=== PATIENT | female | born 1955 | race Caucasian/White ===

== ENCOUNTER → 2016-08-29 | Outpatient (CLI) | payer OTHER ==
[~2016-08-29] MED LIST: AMBEREN PO; FISHOIL PO; LIVALO2 MG PO; LORTAB 5 MG/5001 TA1 PO; NORCO 5-325 TA1 EACH PO; VITAMIN E400 UNIT PO; VITAMINC500 PO; VYTORIN 10-401 EACH PO
== END ==
LOC: MRI 06:59
DX: M19.011 Primary osteoarthritis, right shoulder (principal)

== ENCOUNTER → 2018-01-26 | Outpatient (CLI) | payer OTHER ==
[~2018-01-26] MED LIST changes: +FISH OIL 1,001000 M2 PO; +NAPROSYN500 MG PO; +POTASSIUM CHLORIDE PO; +SIMVASTATIN20 MG PO; +VITAMIN D1000 UNI1 PO
== END ==
LOC: RAD 15:36
DX: Z12.31 Encounter for screening mammogram for malignant neoplasm of breast (principal)

== ENCOUNTER 2018-05-15 09:36 | Emergency (ER) | payer OTHER ==
[~2018-05-15] VITALS: Ht 167.6 cm; Wt 72.6 kg
[2018-05-15 10:40] LABS: ABSOLUTE NEUTROPHILS 5.8 thou/uL (1.4-8.2); BASOPHILS 0.5 % (0.0-2.0); EOSINOPHILS 19.3 % (0.0-3.0); HEMATOCRIT 48.7 % (37.0-47.0); HEMOGLOBIN 16.8 gm/dL (12.0-15.0); MCH 32.7 pg (26.0-34.0); MCHC 34.6 g/dL (28.0-37.0); MCV 94.7 fL (80.0-100.0); MONOCYTES 5.6 % (1.0-8.0); PLATELET COUNT 226 thou/uL (150-400); POLYS 57.6 % (36.0-66.0); RBC 5.14 mil/uL (4.20-5.00); RDW 13.3 % (10.5-14.5); WBC 10.1 thou/uL (4.0-11.0)
[2018-05-15 10:42] LABS: ANION GAP 0 mmol/L (7-16); BUN 14 mg/dL (7-18); CALCIUM 9.3 mg/dL (8.5-10.1); CHLORIDE 104 mmol/L (98-107); CO2 31 mmol/L (21-32); CREATININE 0.7 mg/dL (0.6-1.0); GLUCOSE 96 mg/dL (74-106); POTASSIUM 3.9 mmol/L (3.5-5.1); SODIUM 135 mmol/L (136-145)
[2018-05-15 10:51] LABS: ALBUMIN 4.2 g/dL (3.4-5.0); LIPASE 84 U/L (73-393); SGOT 27 U/L (15-37); SGPT 30 U/L (30-65); TOTAL BILIRUBIN 0.5 mg/dL (<0.1-1.0); TOTAL PROTEIN 7.4 g/dL (6.4-8.2); TROPONIN-I <0.06 ng/mL (<0.06)
[2018-05-15 10:51] LABS: URINE BILIRUBIN NEGATIVE (Negative); URINE BLOOD NEGATIVE (Negative); URINE CLARITY CLEAR; URINE COLOR YELLOW; URINE GLUCOSE-RANDOM* NEGATIVE (Negative); URINE KETONES NEGATIVE (Negative); URINE LEUKOCYTES-REFLEX NEGATIVE (Negative); URINE NITRITE-REFLEX NEGATIVE (Negative); URINE PROTEIN (DIPSTICK) NEGATIVE (Negative); URINE UROBILINOGEN 0.2 E.U./dl (0.2-1.0)
[2018-05-15 12:57] VITALS: BP 130/90
--- NOTE | 2018-05-17 08:24 | EKG ---
[address] [address] ELECTROCARDIOGRAM REPORT Name: TING PRESCOTTDELFINA Zuniga Room #: [facility]#: [id number] Admission: 05/15/18 Attend Phys: Discharge: 05/15/18 Date of : 51 Report #: [id number] THIS REPORT FOR: //name// [facility] ED Test Date: 2018-05-15 Test Time: 10:33:07 Pat Name: FREDERICK PRESCOTT Department: Room: Gender: F Cardiac Nurse Specialist: [facility] : 1955 Requested By: Justino Christianson Order Number: [id number] MD: Ata Leal Measurements Intervals [place] Rate: 79 P: 62 [place]: 129 QRS: 46 QRSD: 91 T: 46 QT: 406 QTc: 466 Interpretive Statements Sinus rhythm Normal tracing Compared to ECG 08/23/2010 13:18:10 No significant changes Electronically Signed On 05-17-2018 8:24:32 [employer] by Ata Leal [email or web address] <ELECTRONICALLY SIGNED> By: Ata Leal MD, [facility] 05/17/18 0824 1033 1033 Ata Leal MD, FACC /EPI
== END 2018-05-15 13:00 | disposition home or self-care (01) ==
LOC: ER 09:36
PROVIDERS: Emergency Medicine
DX: J98.11 Atelectasis (principal); I10 Essential (primary) hypertension; Z90.49 Acquired absence of other specified parts of digestive tract; F17.200 Nicotine dependence, unspecified, uncomplicated; Z88.0 Allergy status to penicillin

== ENCOUNTER → 2019-10-24 | Outpatient (CLI) | payer OTHER ==
[~2019-10-24] MED LIST changes: +LEXAPRO 10 MG T10 M2 PO; +MELATONIN5 MG PO; +NAPROXEN SODIU500 MG PO; -SIMVASTATIN20 MG PO; +ZOCOR20 MG PO
== END ==
LOC: RAD 08:57
PROVIDERS: ATTEND Family Medicine
DX: Z12.31 Encounter for screening mammogram for malignant neoplasm of breast (principal)

== ENCOUNTER → 2019-10-27 | Outpatient (CLI) | payer OTHER | LOC: BC 09:00 | PROVIDERS: ATTEND Family Medicine | DX: R92.1 Mammographic calcification found on diagnostic imaging of breast (principal) ==

== ENCOUNTER → 2019-10-28 | Outpatient (CLI) | payer OTHER ==
[~2019-10-28] VITALS: Ht 167.6 cm; Wt 71.7 kg
--- NOTE | 2019-10-28 15:00 | P ---
[facility] [place] [address] PROCEDURE REPORT Name: FREDERICK PRESCOTT Room #: REG [facility]#: [id number] Admission: 10/28/19 Attend Phys: Kalpesh Coffman Discharge: Date of : 51 Report #: [id number] THIS REPORT FOR: cc: Manan Contreras,Kalpesh Ramirez MD ~ CC: Kalpesh Contreras DO DATE OF SERVICE: 10/28/2019 PROCEDURE PERFORMED: Colonoscopy with biopsies. HISTORY OF PRESENT ILLNESS: The patient is a 64-year-old female with a history of colon polyps, last colonoscopy in 2012 was noted to have diverticulosis at that time. At that time, the patient was having diarrhea and biopsies were suggestive of collagenous colitis. At this time, she denies any significant diarrhea. No family history of colon cancer. DESCRIPTION OF PROCEDURE: The risks and benefits of the procedure were explained to the patient, those risks including but not limited to bleeding, perforation and the risk of sedation. She understood these risks and gave informed consent. Sedation was given using propofol per anesthesia. Next, a digital rectal exam was initially performed, which was normal. Next, using a standard Olympus colonoscope, the scope was placed in the patient's anus and advanced under direct vision to the cecum. The overall prep was good. The cecum and ileocecal valve were normal in appearance. Ascending colon was normal. Random biopsies were obtained to rule out the possibility of collagenous colitis. The transverse and descending colon were normal. Multiple diverticula were again noted in the sigmoid colon, no evidence of inflammation. Also noted, there were two 3-4 mm sessile polyps in the sigmoid colon, both removed with cold forceps. The rectal mucosa was normal. On retroflexion, no abnormalities were noted other than small internal hemorrhoid. The scope was then withdrawn and the procedure terminated. The patient tolerated the procedure well. IMPRESSION: 1. Sigmoid diverticulosis. 2. Two small colonic polyps. 3. Small internal hemorrhoids. 4. Otherwise, normal colonoscopy. RECOMMENDATIONS: 1. Await biopsy results. 2. If polyps are hyperplastic, repeat in 10 years; if adenomatous polyps, [address] [address] PROCEDURE REPORT Name: KENYONFREDERICK Room #: REG [place]#: [id number] Admission: 10/28/19 Attend Phys: Kalpesh Coffman Discharge: Date of : 51 Report #: [id number] repeat in 5 years. Thank you for allowing me to participate in her care. <ELECTRONICALLY SIGNED> By: Kalpesh Vick MD 10/28/19 1500 0954 1051 Kalpesh Vick MD /nt
--- NOTE | 2019-10-28 15:00 | P ---
[facility] [place] [address] PROCEDURE REPORT Name: FREDERICK PRESCOTT Room #: REG [facility]#: [id number] Admission: 10/28/19 Attend Phys: Kalpesh Coffman Discharge: Date of : 51 Report #: [id number] THIS REPORT FOR: cc: Manan Contreras,Kalpesh Ramirez MD ~ CC: Kalpesh Contreras DO DATE OF SERVICE: 10/28/2019 PROCEDURE PERFORMED: Upper endoscopy with biopsies. HISTORY OF PRESENT ILLNESS: The patient is a 64-year-old female with a history of intermittent heartburn. She denies any dysphagia, not taking any antacids on a regular basis. She does take naproxen daily. Plan is for EGD and colonoscopy today. DESCRIPTION OF PROCEDURE: The risks and benefits of the procedure were explained to the patient, those risks including but not limited to bleeding, perforation and the risk of sedation. She understood these risks and gave informed consent. Sedation was given using propofol per Anesthesia. Next, using a standard Olympus upper endoscope, the scope was placed in the patient's mouth and advanced under direct vision through the esophagus, stomach and into the second portion of the duodenum. The larynx was normal in appearance. In the proximal esophagus, 2 inlet patches were noted. The mid esophagus was normal. In the distal esophagus, a possible short segment of Jameson's was noted. Biopsies were obtained. Grade B erosive esophagitis was also noted. Overall, the gastric mucosa was normal in the fundus and body; however, in the antrum, there was gastritis with a single clean white based 5 mm ulcer. No evidence of bleeding. Biopsies were obtained to rule out H. pylori. The pylorus was normal and patent. The duodenal bulb, first and second portion were normal. Biopsies were obtained to rule out the possibility of celiac sprue. The scope was then withdrawn and the procedure terminated. The patient tolerated the procedure well. IMPRESSION: 1. Grade B erosive esophagitis. 2. 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 3. Gastric ulcer with gastritis. 4. Otherwise, normal upper endoscopy. RECOMMENDATIONS: 1. Await biopsy results. 2. Would recommend long-term daily PPI therapy. [address] [address] PROCEDURE REPORT Name: FREDERICK PRESCOTT Room #: REG [facility]#: [id number] Admission: 10/28/19 Attend Phys: Kalpesh Coffman Discharge: Date of : 51 Report #: [id number] 3. We will proceed with colonoscopy next today. Thank you for allowing me to participate in her care. <ELECTRONICALLY SIGNED> By: Kalpesh Vick MD 10/28/19 1500 0951 0959 Kalpesh Vick MD /nt
--- NOTE | 2019-10-31 18:06 | PATH ---
[facility] [place] [address] PATHOLOGY RPT PROCEDURE Name: FREDERICK PRESCOTT Nadia Room #: REG SUMA[facility] BenjaminAnaTwan.#: [id number] Admission: 10/28/19 Date of : 51 Discharge: Report #: [id number] Path Case #: [id number] [facility] Accession Number: [id number] . 01 Material submitted: . PART A: duodenum - DUODENAL BX PART B: stomach - GASTRITIS BX PART C: esophagus - DISTAL ESOPHAGUS BX. Modifiers: distal PART D: colon - RANDOM COLON BX PART E: sigmoid colon - SIGMOID COLON POLYP X3 . 01 Clinical history: . GERD, history of polyps Gastritis, gastric ulcer, erosive esophagitis, colon polyps . 02 Diagnosis: A. Small bowel mucosa, duodenal R/O sprue, endoscopic biopsy: - No diagnostic abnormalities present. - Negative for villous blunting or increase in intraepithelial lymphocytes. . B. Gastric mucosa, gastritis R/O H. pylori, endoscopic biopsy: - Mild reactive gastropathy. - Negative for intestinal metaplasia or atrophy. - Negative for Helicobacter pylori (properly controlled immunohistochemical stain performed). . C. Gastroesophageal mucosa, distal esophagus R/O Jameson's, endoscopic biopsy: - Gastric cardia-type mucosa with moderate chronic inflammation. - Negative for intestinal metaplasia or dysplasia. - Squamous mucosa with mild esophagitis. . D. Large intestine, random colon history of collagenous colitis, endoscopic biopsy: - Focal denuded surface epithelium along with scattered crypts showing lymphocytic infiltration (please see comment). - Reactive changes. - Negative for dysplasia or malignancy. . E. Polyp x3, sigmoid colon polyp, endoscopic biopsy: - Tubular adenoma identified in multiple fragments. - Negative for high-grade dysplasia. (IUV:armando; 10/31/2019) S 10/31/2019 1421 Local . 02 Comment: [address] [address] PATHOLOGY RPT PROCEDURE Name: FREDERICK PRESCOTT Room #: REG [facility]#: [id number] Admission: 10/28/19 Date of : 51 Discharge: Report #: [id number] Path Case #: [id number] The provided history of collagenous colitis is noted. The submitted "random colon" biopsy tissue shows scattered foci with denuded surface epithelium, and mild increase in intraepithelial lymphocytes within scattered crypts along with eosinophils within the crypts. These findings may be suggestive of residual collagenous colitis. The subepithelial collagen layer is not significantly thickened within any of the fragments sampled. Active cryptitis is not a feature within the biopsy fragments as well. Findings to suggest acute or chronic diverticulitis, or ischemic colitis are not identified. Please note the differential diagnosis includes drug/medication induced colitis. Clinical correlation is suggested. (IUV:armando; 10/31/2019) . 02 Electronically signed: . Jennifer Jarquin MD, Pathologist NPI- [id number] . 01 Gross description: . A. The specimen is received in formalin labeled "Sandra, Olene, duodenal BX rule out sprue" and consists of multiple fragments of cordero tissue measuring 1.1 x 0.2 x 0.2 cm in aggregate which are entirely submitted in A1. . B. The specimen is received in formalin labeled "Sandra, Olene, gastritis BX rule out H. pylori" and consists of 2 fragments of cordero tissue measuring 0.5 x 0.3 x 0.2 cm in aggregate which are entirely submitted in B1. . C. The specimen is received in formalin labeled "Sandra, Olene, distal esophagus BX rule out Jameson's" and consists of multiple fragments of pink-cordero tissue measuring 0.6 x 0.2 x 0.2 cm in aggregate which are entirely submitted in C1. . D. The specimen is received in formalin labeled "Sandra, Olene, random colon BX history of collagenous colitis" and consists of multiple fragments of cordero tissue measuring 0.8 x 0.3 x 0.2 cm in aggregate which are entirely submitted in D1. . E. The specimen is received in formalin labeled "Sandra, Olene, sigmoid colon polyp x3" and consists of multiple fragments of cordero tissue measuring 1.2 x 0.3 x 0.2 cm in aggregate which are entirely submitted in E1. (BRAYDEN; 10/28/2019) JFQ/EFE 10/28/2019 1850 Local . 02 Pathologist provided ICD-10: K31.9, K20.9, D12.5, K21.0, Z86.010 . 02 [facility] . [address] [address] PATHOLOGY RPT PROCEDURE Name: FREDERICK PRESCOTT Room #: REG SUMAYA Minor.#: [id number] Admission: 10/28/19 Date of : 51 Discharge: Report #: [id number] Path Case #: [id number] Specimen Comment: A courtesy copy of this report has been sent to [phone] Specimen Comment: [phone] Specimen Comment: Report sent to / DR SANCHEZ Performed at: [address] [facility] [address], [place] [id number] MD Catarino Garcia MD Phone: [phone] Performed at: [address] [facility] [address] [id number] MD Jennifer Jarquin MD Phone: [phone]
== END | disposition home or self-care (01) ==
LOC: GI 07:36
PROVIDERS: ATTEND Specialist
DX: Z12.11 Encounter for screening for malignant neoplasm of colon (principal); R12 Heartburn; K64.8 Other hemorrhoids; K57.30 Diverticulosis of large intestine without perforation or abscess without bleeding; K63.89 Other specified diseases of intestine; K31.89 Other diseases of stomach and duodenum; K21.0 Gastro-esophageal reflux disease with esophagitis; D12.5 Benign neoplasm of sigmoid colon; K29.50 Unspecified chronic gastritis without bleeding; Z88.0 Allergy status to penicillin; Z79.899 Other long term (current) drug therapy; Z98.890 Other specified postprocedural states
CPT/HCPCS: 62110; 62900

== ENCOUNTER → 2019-11-03 | Outpatient (CLI) | payer OTHER ==
[~2019-11-03] MED LIST changes: +LORCET 5-325 M1 EACH PO; +OMEPRAZOLE 20 M20 M1 PO
--- NOTE | 2019-11-04 17:08 | PATH ---
[facility] [address] [place] [address] PATHOLOGY RPT PROCEDURE Name: KENYONML Room #: REG [facility] Mily.#: [id number] Admission: 11/03/19 Date of : 51 Discharge: Report #: [id number] Path Case #: [id number] [facility] Accession Number: [id number] . 01 Material submitted: . breast - LEFT BREAST STEREOTACTIC BIOPSY LATERAL. Modifiers: left, lateral . 01 Clinical history: . Left breast calcifications . 02 Diagnosis: Left breast lateral calcifications, stereotactic needle core biopsy: - FOCAL ATYPICAL DUCTAL HYPERPLASIA WITH CRIBRIFORMING AND FOCAL INTRADUCTAL PAPILLARY PROLIFERATIONS ASSOCIATED WITH COARSE CALCIFICATIONS. - Background breast tissue showing nonproliferative fibrocystic changes. (IUV:armando; 11/04/2019) QMS 11/04/2019 1139 Local . 02 Comment: Examination shows focal dilated ducts lined by columnar cell change, columnar cell hyperplasia, few intraductal papillary proliferations as well as "Tirso" bridging comprised of a monotonous nucleated proliferation. These foci are scattered and are associated with coarse calcifications. A single focus measures approximately 1 mm; therefore, represents atypical ductal hyperplasia. Partially sampled cribriform ductal carcinoma in situ is in the differential diagnosis. . Projector Booth Operator slides were co-reviewed by Dr. Chetna Foreman, who concurs with my diagnosis. (IUV:armando; 11/04/2019) . 02 Electronically signed: . Jennifer Jarquin MD, Pathologist NPI- [id number] . 01 Gross description: . The specimen is received in formalin, labeled "Ml Flores". No source is listed on the container. The source is listed on the requisition as, "left lateral". Received are multiple needle cores of fibrofatty tissue measuring 2.7 x 2.0 x 0.4 cm in aggregate dimensions. Also received within the containers a plastic cassette containing several cores of bright yellow fibrofatty tissue measuring 2.2 x 1.7 x 0.4 cm in aggregate dimensions. The suspect tissue is transferred to cassette A1, with the remainder of the specimen submitted in cassettes A2 and A3. The cold ischemic time is 2 minutes. The total formalin fixation time is 11 hours and [address] [address] PATHOLOGY RPT PROCEDURE Name: KENYONML Room #: REG [facility]#: [id number] Admission: 11/03/19 Date of : 51 Discharge: Report #: [id number] Path Case #: [id number] (CAA; 11/03/2019) QAC/QAC 11/03/2019 1738 Local . 02 Pathologist provided ICD-10: N62, N60.12 . 02 CPT . [id number] Specimen Comment: A courtesy copy of this report has been sent to [phone] Specimen Comment: [phone] Specimen Comment: Report sent to / DR SANCHEZ Performed at: [address] [facility], [place] [id number] MD Catarino Garcia MD Phone: [phone] Performed at: [address] [id number] MD Jennifer Jarquin MD Phone: [phone]
== END | disposition home or self-care (01) ==
LOC: BC 08:23
PROVIDERS: ATTEND Radiology Diagnostic Radiology
DX: N60.12 Diffuse cystic mastopathy of left breast (principal); N62 Hypertrophy of breast; R92.1 Mammographic calcification found on diagnostic imaging of breast

== ENCOUNTER → 2019-11-17 | Outpatient (CLI) | payer OTHER | LOC: LAB 10:50 | PROVIDERS: ATTEND Student in an Organized Health Care Education/Training Program | DX: Z01.812 Encounter for preprocedural laboratory examination (principal); Z11.59 Encounter for screening for other viral diseases ==

== ENCOUNTER 2019-11-18 12:24 | Day surgery (SDC) | payer OTHER ==
[~2019-11-18] VITALS: Ht 170.2 cm; Wt 71.7 kg
--- NOTE | ~2019-11-18 | O ---
[facility] [place] [address] OPERATIVE REPORT Name: FREDERICK PRESCOTT Room #: DEP [facility].#: [id number] Admission: 11/18/19 Attend Phys: Ian Grubbs MD Discharge: 11/18/19 Date of : 51 Report #: [id number] THIS REPORT FOR: cc: Manan Contreras,Ian Fernando MD ~ CC: Manan Alberto DATE OF SERVICE: 11/18/2019 PREOPERATIVE DIAGNOSES: Left breast mass with focus of atypical ductal hyperplasia and focus of intraductal papillary proliferation, post stereotactic breast biopsy hematoma. POSTOPERATIVE DIAGNOSES: Left breast mass with focus of atypical ductal hyperplasia and focus of intraductal papillary proliferation, post stereotactic breast biopsy hematoma. PROCEDURES PERFORMED: Left lumpectomy, removing the entire biopsy site including the hematoma. SURGEON: Ian Grubbs MD COMPLICATIONS: None. ESTIMATED BLOOD LOSS: 5 mL. PROCEDURE NOTE: With the patient under general anesthesia, the left breast was prepped and draped in sterile fashion. Ultrasound was used to macrina the site of the hematoma and where the presence of the clip. Breast was then prepped and draped in sterile fashion. A small ellipse of skin was removed overlying the underneath breast tissue. The patient had a stereotactic breast biopsy with the craniocaudad view and anterior approach and the whole entire tract had a large hematoma. The entire hematoma with surrounding was removed. Dissection was carried out after incising through the skin. The skin was then lifted off of the mass. At the superior aspect of the mass, a biopsy cavity was found and this wall was further removed. Dissection was carried out around the breast tissue medially and then laterally and then lifted off the chest wall without difficulty. The mammography people were not there today. I did go ahead and do a soft tissue x-ray and I could see the clip within the specimen. The picture almost looks like a specimen mammogram. Specimen was also oriented with a short stitch superiorly, long stitch laterally at 9 o'clock and superiorly at 12 o'clock. The small piece of the skin lying over it is anterior. Hemostasis obtained. Cautery was used. Two 4-0 PDS suture was used for hemostasis also. [address] [address] OPERATIVE REPORT Name: FREDERICK PRESCOTT Nadia Room #: DEP [facility].#: [id number] Admission: 11/18/19 Attend Phys: Ian Grubbs MD Discharge: 11/18/19 Date of : 51 Report #: [id number] The subcutaneous tissue was closed with 4-0 PDS. Skin was closed with 5-0 PDS running in subcuticular fashion. Dermabond was applied. Fluffy 4 x 4s, ABD tape was applied. The patient was taken to recovery room having tolerated the procedure well. By: 1754 1812 Ian Grubbs MD /romaine
[~2019-11-18 12:24] MED LIST changes: -LORCET 5-325 M1 EACH PO
[2019-11-18 13:11] VITALS: BP 169/91
[2019-11-18 13:11] LABS: HEMATOCRIT 45.6 % (37.0-47.0); HEMOGLOBIN 15.3 gm/dL (12.0-15.0)
[2019-11-18] MEDS ORDERED: LORCET 5-325 M1 EACH PO (16:10)
--- NOTE | 2019-11-18 16:15 | H ---
[facility] [place] [address] HISTORY AND PHYSICAL Name: FREDERICK PRESCOTT Room #: 150-1 [facility]..#: [id number] Admission: 11/18/19 Attend Phys: Ian Grubbs MD Discharge: Date of : 51 Report #: [id number] THIS REPORT FOR: cc: Rosario Contreras James A. DO Chu, Peter Y. MD ~ CC: ROSARIO Warner DATE OF SERVICE: 11/18/2019 PREOPERATIVE DIAGNOSIS: Focus of atypical ductal hyperplasia on recent stereotactic breast biopsy of left breast. HISTORY OF PRESENT ILLNESS: The patient is a 64-year-old who went in for a screening mammogram on 10/23. Her prior mammogram was 01/2016. The patient was found to have a microcalcification in the outer aspect of the left breast, had a branching appearance. The patient went back on 10/26 for diagnostic view, which confirmed the microcalcification and the patient underwent stereotactic breast biopsy on 11/02. Path report showed a focus of atypical ductal hyperplasia and also focus of intraductal papillary proliferation. The patient does have family history of breast cancer. She has 2 sisters that had breast cancer, both were in their 40s. Maternal grandmother had breast cancer. No family history of ovarian cancer. The patient has not had any prior breast biopsy. No mass is detected, but she does not do self exam very well. No pains in her breast. No skin changes. No discharge. The patient is recommended to have a lumpectomy performed of this area. Unfortunately, she does have a pretty large sized hematoma after stereotactic breast biopsy. The patient's clip is identified inside the hematoma along the 9 o'clock position. This was seen on an ultrasound that I performed. The patient is here for procedure. PAST MEDICAL HISTORY: The patient does have a history of diverticulosis, gastric ulcer, anxiety disorder. Denies heart disease, denies high blood pressure, denies diabetes, denies lung disease, denies liver disease, denies kidney disease, denies bleeding history. Denies history of blood clot. PAST SURGICAL HISTORY: Laparoscopic gallbladder surgery performed by myself. She had a total shoulder replacement by Dr. Henry. She has had D and Cs in the past. ALLERGIES: THE PATIENT IS ALLERGIC TO PENICILLIN. She had 2 episodes with swelling. The patient has a history of palpitations and anxiety also. FAMILY HISTORY: Patient's father had a heart attack at age 64. Mother had a pacemaker. Maternal grandfather of stroke. [address] [address] HISTORY AND PHYSICAL Name: FREDERICK PRESCOTT Room #: 150-1 [facility] M..#: [id number] Admission: 11/18/19 Attend Phys: Ian Grubbs MD Discharge: Date of : 51 Report #: [id number] SOCIAL HISTORY: The patient works at [email or web address] She does smoke and does drink also. REVIEW OF SYSTEMS: No chest pain, shortness of breath or palpitation. PHYSICAL EXAMINATION: GENERAL: The patient is alert and oriented. HEENT: Pupils react to light. Extraocular muscles intact. Oropharynx is clear. NECK: Soft and supple, no masses. LUNGS: Clear to auscultation. HEART: Regular rate and rhythm. No murmur or gallop. ABDOMEN: Soft, nondistended, nontender. BREAST: Does show a sizable hematoma lateral aspect of the breast. The patient had a stereotactic breast biopsy from craniocaudad direction. EXTREMITIES: No cyanosis, clubbing or edema. IMPRESSION: The patient with an abnormal mammogram showing a branching microcalcification of left breast. Biopsy showed that this contains a focus of atypical ductal hyperplasia and also intraductal papillary perforation. The patient is recommended to have a lumpectomy to remove this area. She is brought in for the procedure. The patient understands the procedure, risk of bleeding, and infection. The reason for the biopsy is that she does have a fairly high risk for breast cancer and also to make sure that pathology does not get upgraded to a higher level such as DCIS. <ELECTRONICALLY SIGNED> By: Ian Grubbs MD 11/18/19 1615 0925 0954 Ian Grubbs MD /nt
[2019-11-18 16:23] VITALS: BP 169/91
--- NOTE | 2019-11-21 08:01 | EKG ---
[facility] [place] [address] ELECTROCARDIOGRAM REPORT Name: FREDERICK PRESCOTT Room #: DEP [facility]..#: [id number] Admission: 11/18/19 Attend Phys: Ian Grubbs MD Discharge: 11/18/19 Date of : 51 Report #: [id number] THIS REPORT FOR: cc: Manan Contreras James A. DO Lundgren, Craig H. MD [facility] THIS REPORT FOR: //name// [facility] Test Date: 2019-11-18 Test Time: 12:47:45 Pat Name: FREDERICK PRESCOTT Department: Room: 150 1 Gender: F Distributor Advertising Material: LORRIE : 1955 Requested By: Ian Grubbs Order Number: [id number] MD: Ata Leal Measurements Intervals [place] Rate: 67 P: 69 [place]: 127 QRS: 57 QRSD: 90 T: 45 QT: 444 QTc: 469 Interpretive Statements Sinus rhythm Normal tracing Compared to ECG 05/15/2018 10:33:07 No significant changes Electronically Signed On 11-21-2019 8:01:06 CDT by Ata Leal [email or web address] <ELECTRONICALLY SIGNED> By: Ata Leal MD, [facility] 11/21/19 0801 1247 1247 Ata Leal MD, [facility] /EPI
--- NOTE | 2019-11-25 16:06 | PATH ---
[facility] [place] [address] PATHOLOGY RPT PROCEDURE Name: ML PRESCOTT Nadia Room #: DEP [facility].#: [id number] Admission: 11/18/19 Date of : 51 Discharge: 11/18/19 Report #: [id number] Path Case #: [id number] [facility] Accession Number: [id number] . 01 Material submitted: . breast - LEFT BREAST LUMPECTOMY. Modifiers: left . 01 Clinical history: . Left atypical ductal hyperplasia. . 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 - DUCTAL CARCINOMA IN SITU MEASURES AT LEAST 9 MM IN GREATEST DIMENSION. - MARGINS OF RESECTION FREE OF MALIGNANCY; CLOSEST MEDIAL MARGIN IS LESS THAN 1 MM AWAY. . (IUV:mml; 11/22/2019) . . Surgical Pathology Cancer Case Summary . Protocol posting date: May 2019 . DCIS OF THE BREAST: . Specimen Identification . Procedure ___ Lumpectomy . Specimen Laterality ___ Left . Size (Extent) of DCIS Estimated size (extent) of DCIS (greatest dimension using gross and microscopic evaluation): at least (millimeters) 9 mm Number of blocks with DCIS: 6 Number of blocks examined: 28 . Histologic Type ___ Ductal carcinoma in situ . Architectural Patterns ___ Cribriform . [facility] [address] [place] [address] PATHOLOGY RPT PROCEDURE Name: TING PRESCOTTDELFINA Zuniga Room #: DEP [facility]#: [id number] Admission: 11/18/19 Date of : 51 Discharge: 11/18/19 Report #: [id number] Path Case #: [id number] Nuclear Grade) ___ Grade II (intermediate) . Necrosis ___ Not identified . Margins ___ Uninvolved by DCIS Distance from closest margin (millimeters): less than 1 mm Specify closest margin: medial Specify additional margins: ___ Anterior: 20 mm ___ Posterior: 18 mm ___ Lateral: 15 mm . Regional Lymph Nodes ___ No lymph nodes submitted or found . Pathologic Stage Classification (pTNM, AJCC 8th Edition) . Primary Tumor (pT) ___ pTis (DCIS): Ductal carcinoma in situ . Category (pN) ___ pNX: Regional lymph nodes cannot be assessed (eg: not removed for pathological study or previously removed) . Distant Metastasis (pM) ___ pMx: None known . Ancillary Studies ___ Ordered to be performed on Block A12; please refer to an addendum report to follow for details. . Microcalcifications ___ Present in DCIS as well as benign breast tissue. [facility] 11/23/2019 1247 Local . 02 Comment: Dr. Chetna Foreman has seen factory representative slides of this case and concurs with my diagnosis. . The findings of this case are conveyed to Dr. Ina Grubbs on the evening of 11/22/2019. . (IUV:mml; 11/22/2019) . [address] [address] PATHOLOGY RPT PROCEDURE Name: ML PRESCOTT Room #: DEP [facility]#: [id number] Admission: 11/18/19 Date of : 51 Discharge: 11/18/19 Report #: [id number] Path Case #: [id number] Addendum: . Special studies report received from [facility], [address] [place] [address], [address], [place], [address], on case [id number], labeled with their number [id number], dated 11/25/2019. . Breast/Prognostic Marker Analysis . Specimen Site: Lt Breast, DCIS (Lumpectomy) Specimen ID #: [id number] . ER (Estrogen Receptor) Present/Positive Percent: 95.00% Analysis: Manual Comments: Staining intensity: Moderate to strong . NV (Progesterone Receptor) Present/Positive Percent: 90.00% Analysis: Manual Comments: Staining intensity: Weak to moderate . Time to Fixation (Cold Ischemic Time): Not Provided Duration of Fixation: Not Provided Type of Fixative: 10% Neutral Buffered Formalin . Comments: ER/PgR testing at [facility]. is performed in compliance with the ASCO/CAP Clinical Practice Guidelines. If the result for ER is less than 1% it is reported as Negative; if the ER result is 1-10% it is reported as Low Positive; if the ER result is greater than 10% it is reported as Positive. If the result for PgR is less than 1% it is reported as Negative; if the PgR result is equal to or greater than 1%, it is reported as Positive. . REFERENCE: Pia MCKINNON, Sai UREÑA, Donna M, et al. Estrogen and progesterone receptor testing in breast cancer. ASCO/CAP guideline update. Arch Pathol Lab Med. 2020; 144:545-563. . Whole slide image capture is performed using [employer] ([employer]) platform. Image analysis, if ordered, is performed using [employer] software. . at [facility]. Deborah Grover M.D. Pathologist . [address] [address] PATHOLOGY RPT PROCEDURE Name: ML PRESCOTT Room #: DEP [facility]#: [id number] Admission: 11/18/19 Date of : 51 Discharge: 11/18/19 Report #: [id number] Path Case #: [id number] . Methodology A rabbit monoclonal antibody (clone SP1) that recognized the Estrogen Receptor is used to perform immunohistochemistry on routinely fixed (formalin) paraffin embedded tissue on the [place] [employer]. The specimen is processed using a secondary antibody-HRP conjugate detection system. The percentage of stained tumor nuclei is determined either manually or by image analysis. This test is intended for in vitro diagnostic use. This test is used for clinical purposes. . A rabbit monoclonal antibody (clone 1E2) that recognized the Progesterone Receptor is used to perform immunohistochemistry on routinely fixed (formalin) paraffin embedded tissue on the [employer] [place] [employer]. The specimen is processed using a secondary antibody-HRP conjugate detection system. The percentage of stained tumor nuclei is determined either manually or by image analysis. This test is intended for in vitro diagnostic use. This test is used for clinical purposes. . Intended Use: This antibody is intended for in vitro diagnostic (IVD) use. Estrogen Receptor (ER) (SP1) is a rabbit monoclonal antibody (IgG) that is intended for the qualitative detection of estrogen receptor (ER) antigen in sections of formalin-fixed, paraffin-embedded tissue. ER is a rabbit monoclonal antibody that recognizes human estrogen receptor alpha. . This antibody is intended for in vitro diagnostic (IVD) use. Progesterone Receptor (NV) (1E2) is a rabbit monoclonal antibody (IgG) that is intended for the qualitative detection of progesterone receptor (NV) antigen in sections of formalin fixed, paraffin embedded tissue. NV is a rabbit monoclonal antibody that recognizes the A and B forms of the human progesterone receptor. . Disclaimer: This Test was performed by [employer] at [address], [address]. . [facility] is a business unit of [employer]. a wholly-owned subsidiary of [employer]. . This assay has not been validated on decalcified tissues. Results should be interpreted with caution if this specimen was decalcified given the likelihood of false negativity on decalcified specimens. . Any image(s) that accompany this report is/are a factory representative image(s) only and should not be used to render a diagnosis. . This interpretation is contingent on the specimen and the clinical [facility] [place] [address] PATHOLOGY RPT PROCEDURE Name: ML PRESCOTT Nadia Room #: DEP [facility]..#: [id number] Admission: 11/18/19 Date of : 51 Discharge: 11/18/19 Report #: [id number] Path Case #: [id number] information received. . For any special tests/stains performed, known positive cells or tissues are tested with each marker and examined to ensure positivity. Positive and negative internal controls, if present, react appropriately. . This analysis is an adjunct to the evaluation of the referring physician and does not represent a final diagnosis. . The immunohistochemistry tests performed at [employer] were validated on tissue fixed in 10% neutral buffered formalin. The performance characteristics of the tests performed on tissue processed in other fixatives is not known. . ER/NV ASCO/CAP guidelines require fixation in neutral buffered formalin for a minimum of 6 and a maximum of 72 hours. Fixation times less than 6 hours may not adequately preserve cell proteins. Fixation times longer than 72 hours may cause excess cross-linking of proteins reducing the antigen available for staining. Either scenario can cause reduced staining; hence false negative results are possible and should be considered for these situations. The time from biopsy/excision to fixation in formalin (cold ischemic time) must be less than 1 hour. Time to fixation (cold ischemic time) greater than 1 hour should be interpreted with caution. REF: Cassdiy Gibbs, et al. [place] Society of Clinical Oncology/College of [place] Pathologists Guideline Recommendations for Immunohistochemical Testing of Estrogen and Progesterone Receptors in Breast Cancer. J Clin Oncol. 2010 September 11; 28(16): 8729-7904. . A complete copy of the report is on file. . Professional and Technical services performed by [employer]. at [address], [address], [place] [address]. . (IUV:amj 11/25/2019) . . [place]/11/25/2019 Addendum Electronically Signed by Jennifer Jarquin MD, Pathologist . 02 Electronically signed: . Jennifer Jarquin MD, Pathologist NPI- [id number] . 01 Gross description: . A. Received in formalin labeled "Ml Prescott, left breast lumpectomy short stitch superior long stitch lateral" and further labeled on the requisition as "tiny piece of skin anteriorly" is an oriented lumpectomy specimen weighing 80 g and measuring 8.5 cm from superior to inferior, 5.6 [place] [address] PATHOLOGY RPT PROCEDURE Name: KENYONML Zuniga Room #: [facility]#: [id number] Admission: 11/18/19 Date of : 51 Discharge: 11/18/19 Report #: [id number] Path Case #: [id number] cm from medial to lateral, and 5.0 cm from anterior to posterior. The anterior aspect displays an attached ellipse of cordero-white skin measuring 4.5 x 0.7 x 0.3 cm. The specimen is inked as follows: Superior-red, inferior-blue, anterior-green, posterior-black, lateral-orange, medial-yellow. The specimen is serially sectioned from superior to inferior into 15 slices. A red-brown hemorrhagic biopsy site is identified within the specimen, extending through slices 1-13. The biopsy site measures 6.6 x 2.5 x 1.7 cm, and is located to the margins as follows: 0.3 cm to superior, 1.9 cm to inferior, 2.1 cm superior, 0.7 cm to inferior, 1.3 cm to lateral, and 1.2 cm to medial. A U shaped biopsy clip is present in slice 4. The tissue surrounding the biopsy site is yellow-cordero and lobulated with focal brighter areas possibly consistent with biopsy site changes. A lesion is not definitively identified. Rubber Tester sections of the specimen are submitted as follows: A1-A2 entire slice 1, superior margin, perpendicular sections A3-A5 entire slice 3 A6-A9 entire slice 5 A10-A13 entire slice 7 A14-A17 entire slice 9 A18-A21 entire slice 11 A22-A25 entire slice 13 A26-A28 entire slice 15, inferior margin, perpendicular sections The specimen is removed from the patient and placed in formalin at unspecified times on 11/18/2019 (a time of 1520 is stated on the container- it is unknown if significant for cold ischemic time). The specimen is removed from formalin at 1850 on 11/20/2019. ([facility]; 11/19/2019) [facility] 11/19/2019 1154 Local . 02 Pathologist provided ICD-10: D05.12 . 02 CPT . 094264 Specimen Comment: A courtesy copy of this report has been sent to [phone] Specimen Comment: [phone] Specimen Comment: Report sent to / Performed at: [address], [place], [place] [id number] MD Catarino Garcia MD Phone: [phone] Performed at: [address] [id number] MD Jennifer Jarquin MD Phone: [phone]
== END 2019-11-18 16:45 | disposition home or self-care (01) ==
LOC: OR 12:24 → TBA 12:25 → OR 16:45
PROVIDERS: ATTEND Surgery
DX: D05.12 Intraductal carcinoma in situ of left breast (principal); N62 Hypertrophy of breast; L76.32 Postprocedural hematoma of skin and subcutaneous tissue following other procedure; D24.2 Benign neoplasm of left breast; E78.00 Pure hypercholesterolemia, unspecified; F17.210 Nicotine dependence, cigarettes, uncomplicated; Z98.890 Other specified postprocedural states; Z79.899 Other long term (current) drug therapy; Z90.49 Acquired absence of other specified parts of digestive tract; Z96.611 Presence of right artificial shoulder joint
CPT/HCPCS: 50010; 50101; 50386; 50417; 54118; 56525; 56526; 62110; 62900; 70005

== ENCOUNTER → 2019-11-28 | Outpatient (CLI) | payer OTHER ==
[~2019-11-28] MED LIST changes: +LORCET 5-325 M1 EACH PO
[2019-11-28 09:29] LABS: CREATININE 0.7 mg/dL (0.6-1.0)
== END ==
LOC: MRI 08:29
PROVIDERS: ATTEND Internal Medicine Interventional Cardiology
DX: N64.89 Other specified disorders of breast (principal); D05.82 Other specified type of carcinoma in situ of left breast; Z85.3 Personal history of malignant neoplasm of breast

== ENCOUNTER → 2019-12-05 | Outpatient (CLI) | payer OTHER | LOC: RAD 09:47 | PROVIDERS: ATTEND Surgery | DX: R92.0 Mammographic microcalcification found on diagnostic imaging of breast (principal); D05.12 Intraductal carcinoma in situ of left breast ==

== ENCOUNTER → 2019-12-13 | Outpatient (CLI) | payer OTHER ==
[~2019-12-13] MED LIST changes: +HYDROCODON-ACE1 EAC7 PO
== END ==
LOC: LAB 12-12 15:03
PROVIDERS: ATTEND Surgery
DX: Z01.812 Encounter for preprocedural laboratory examination (principal); Z20.828 Contact with and (suspected) exposure to other viral communicable diseases

== ENCOUNTER 2019-12-16 06:33 | Day surgery (SDC) | payer OTHER ==
[~2019-12-16] VITALS: Ht 170.2 cm; Wt 69.4 kg
--- NOTE | ~2019-12-16 | O ---
[facility] [address]ai [address] [place] [address] OPERATIVE REPORT Name: FREDERICK PRESCOTT Room #: DEP [facility].#: [id number] Admission: 12/16/19 Attend Phys: Ian Grubbs MD Discharge: 12/16/19 Date of : 51 Report #: [id number] THIS REPORT FOR: cc: Manan Contreras James A. DO Chu, Peter Y. MD ~ CC: Manan Grubbs DATE OF SERVICE: 12/16/2019 PREOPERATIVE DIAGNOSIS: Recently identified DCIS of the left breast with close margin less than 1 mm medially. Also residual microcalcifications. POSTOPERATIVE DIAGNOSIS: Recently identified DCIS of the left breast with close margin less than 1 mm medially. Also residual microcalcifications. PROCEDURE PERFORMED: Redo lumpectomy with preop needle localization of microcalcification. COMPLICATIONS: None. ESTIMATED BLOOD LOSS: 5 mL. SURGEON: Ian Grubbs MD PROCEDURE NOTE: With the patient under general anesthesia, left breast was prepped and draped in sterile fashion. Local anesthetic was placed with 0.5% Marcaine. A timeout was performed. The patient did receive IV antibiotic preop. The previous lumpectomy scar was opened up, the needles along the inferior aspect of the previous lumpectomy. A small ellipse of skin was left around the needle. Dissection was then carried anteriorly. The biopsy cavity was nearly completely removed. The needle is located anterior to the cavity. Dissection carried medially, found the tip of the needle. I also excised a little bit of more breast tissue. There is some thickening of the breast tissue in this area. Dissection was carried superiorly. I did cut across the top edge of the previous lumpectomy cavity. Then, the lateral part was removed including the biopsy cavity wall with a small rim of tissue there. More of the breast tissue was removed along the medial aspect and also medial inferior aspect was also removed with more breast tissue removed from this area. Nothing palpable. Hemostasis obtained with cautery. Specimen sent to mammography. The specimen mammogram did show several areas of microcalcification. There was one calcification that looks like it is a chain in linear fashion. The specimen was given to the pathologist who came to the room for consultation. I showed him where the biopsy cavity was and where the new medial margin is located, where the inferior margin was. Irrigation was performed of the biopsy cavity. [address] [address] OPERATIVE REPORT Name: KENYONFREDERICK Room #: DEP [facility].#: [id number] Admission: 12/16/19 Attend Phys: Ian Grubbs MD Discharge: 12/16/19 Date of : 51 Report #: [id number] Subcutaneous tissue was closed with 4-0 PDS. Skin was closed with 5-0 PDS. Dermabond was applied. 4 x 4, fluff was placed and then also ABD was applied. Tape was applied. The patient tolerated the procedure well and was taken to recovery room. By: 1457 1516 Ian Grubbs MD /romaine
[~2019-12-16 06:33] MED LIST changes: -HYDROCODON-ACE1 EAC7 PO
[2019-12-16 07:58] VITALS: BP 146/97
[2019-12-16] MEDS ORDERED: HYDROCODON-ACE1 EAC7 PO (11:04)
[2019-12-16 11:19] VITALS: BP 146/97
--- NOTE | 2019-12-20 18:06 | PATH ---
[facility] [address] [place] [address] PATHOLOGY RPT PROCEDURE Name: TING PRESCOTTDELFINA Zuniga Room #: DEP [facility].#: [id number] Admission: 12/16/19 Date of : 51 Discharge: 12/16/19 Report #: [id number] Path Case #: [id number] [facility] Accession Number: [id number] . 01 Material submitted: . breast - LEFT BREAST LUMP. Modifiers: left . 01 Clinical history: . LONG SUTURE NEW MEDIAL MARGIN, SHORT SUTURE INFERIOR MARGIN, SEE ADDITIONAL NOTES ON REQUISITION . 02 Diagnosis: Breast, left, lumpectomy: - COLUMNAR CELL HYPERPLASIA ASSOCIATED WITH FOCAL ATYPICAL DUCTAL HYPERPLASIA, AND CALCIFICATIONS MEASURING LESS THAN 1 MM. - No residual ductal carcinoma in situ present. - Atypical ductal hyperplasia is 5 mm from deep margin, and approximately 1 mm from medial as well as anterior margins. (IUV:pit 12/20/2019) QTP 12/20/2019 1728 Local . 02 Comment: Scattered rare foci of atypical ductal hyperplasia associated with columnar cell hyperplasia are noted. Intraductal coarse calcifications are identified within a few of these as well. Definitive and residual ductal carcinoma in situ is not present. Extensive biopsy site changes are identified along the medial margin. Atypical ductal hyperplasia is approximately 1 mm away from the medial - anterior margin. . ER as well as MT were performed on the previous lumpectomy ([phone]). The studies are not repeated on the current specimen. A synoptic report is not assembled on the current lumpectomy due to the lack of ductal carcinoma in situ in the current specimen. (IUV:pit 12/20/2019) . 02 Electronically signed: . Jennifer Jarquin MD, Pathologist NPI- [id number] . 01 Gross description: . Received in formalin labeled "Ml Prescott, left breast lump long suture-new medial margin, short suture-inferior margin" is an oriented breast lobectomy specimen weighing 62 g and measuring 8.3 cm from lateral to medial, 7.1 cm from superior to inferior, and 3.8 cm from anterior to posterior. The specimen is received inked as follows: Medial-blue, lateral-red, anterior-green, superior-yellow, inferior-orange, deep-black. There is a previously opened lumpectomy cavity present, measuring 5.[address] [address] PATHOLOGY RPT PROCEDURE Name: ML PRESCOTT Nadia Room #: DEP [facility]#: [id number] Admission: 12/16/19 Date of : 51 Discharge: 12/16/19 Report #: [id number] Path Case #: [id number] 4.5 x 2.2 cm. The specimen is serially sectioned from superior to inferior to reveal bright yellow possible fat necrosis surrounding the lumpectomy cavity. No residual lesion is identified. A biopsy clip is not identified. The uninvolved breast tissue is yellow and lobulated with less than 1% dense white fibrous tissue. Beam Machine Operator sections are submitted as follows: A1 perpendicular sections of superior margin A2 perpendicular sections of inferior margin A3-A4 perpendicular sections of anterior margin A5-A6 perpendicular sections of deep margin A7-A8 perpendicular sections of lateral margin A9-A14 entire medial margin The specimen is removed from the patient at 1026, placed in formalin at 1040, is removed from formalin at 2340 on December 16, 2019. [facility] 12/20/2019 1215 Local . 02 Pathologist provided ICD-10: D05.12, N60.82, Z17.0 . 02 CPT . 563561 Specimen Comment: A courtesy copy of this report has been sent to [phone] Specimen Comment: [phone] Specimen Comment: Report sent to / Performed at: [address], [place] [id number] MD Catarino Garcia MD Phone: [phone] Performed at: [address] [id number] MD Jennifer Jarquin MD Phone: [phone]
== END 2019-12-16 11:55 | disposition home or self-care (01) ==
LOC: TBA 06:33 → OR 06:33
PROVIDERS: ATTEND Surgery
DX: N60.82 Other benign mammary dysplasias of left breast (principal); R92.1 Mammographic calcification found on diagnostic imaging of breast; E78.5 Hyperlipidemia, unspecified; F17.210 Nicotine dependence, cigarettes, uncomplicated; Z98.890 Other specified postprocedural states; Z79.899 Other long term (current) drug therapy; Z85.3 Personal history of malignant neoplasm of breast; Z96.611 Presence of right artificial shoulder joint; Z90.49 Acquired absence of other specified parts of digestive tract; Z87.19 Personal history of other diseases of the digestive system; Z17.0 Estrogen receptor positive status [ER+]; Z88.0 Allergy status to penicillin
CPT/HCPCS: 50010; 50101; 50386; 50417; 54118; 56525; 56526; 62110; 62900; 70005

== ENCOUNTER → 2020-03-19 | Outpatient (CLI) | payer OTHER ==
[~2020-03-19] MED LIST changes: +HYDROCODON-ACE1 EAC7 PO
== END ==
LOC: LAB 10:21
PROVIDERS: ATTEND Internal Medicine Cardiovascular Disease
DX: Z20.828 Contact with and (suspected) exposure to other viral communicable diseases (principal)

== ENCOUNTER → 2020-06-06 | Outpatient (CLI) | payer OTHER | LOC: SJCVCIMAG 09:10 | PROVIDERS: ATTEND Internal Medicine | DX: I47.1 Supraventricular tachycardia (principal); I49.1 Atrial premature depolarization; R00.2 Palpitations; R07.89 Other chest pain; Z85.3 Personal history of malignant neoplasm of breast; Z87.891 Personal history of nicotine dependence ==

== ENCOUNTER → 2020-06-07 | Outpatient (CLI) | payer OTHER | LOC: LAB 09:14 | PROVIDERS: ATTEND Internal Medicine | DX: R53.83 Other fatigue (principal) ==

== ENCOUNTER → 2020-06-19 | Outpatient (CLI) | payer OTHER ==
[~2020-06-19] MED LIST changes: +DILTIAZEM 24HR120 M1 PO; +FISH OIL 1,0001 EAC9 PO; +NOLVADEX20 MG PO; +ZINC50 MG PO
== END ==
LOC: LAB 08:24
PROVIDERS: ATTEND Surgery
DX: Z01.812 Encounter for preprocedural laboratory examination (principal); Z20.822 Contact with and (suspected) exposure to COVID-19

== ENCOUNTER → 2020-06-19 | Outpatient (CLI) | payer OTHER ==
[2020-06-19 09:06] LABS: CALCIUM 8.9 mg/dL (8.5-10.1); CREATININE 0.8 mg/dL (0.6-1.0)
== END ==
LOC: LAB 08:36
PROVIDERS: ATTEND Internal Medicine
DX: I48.91 Unspecified atrial fibrillation (principal)

== ENCOUNTER 2020-06-21 08:18 | Day surgery (SDC) | payer OTHER ==
[~2020-06-21] VITALS: Ht 167.6 cm; Wt 71.2 kg
--- NOTE | ~2020-06-21 | O ---
[facility] [place] [address] OPERATIVE REPORT Name: FREDERICK PRESCOTT Room #: DEP [facility].#: [id number] Admission: 06/21/20 Attend Phys: Ian Grubbs MD Discharge: 06/21/20 Date of : 51 Report #: [id number] THIS REPORT FOR: cc: Manan Contreras James A. DO Chu, Peter Y. MD ~ DATE OF SERVICE: 06/21/2020 PREOPERATIVE DIAGNOSIS: Post-lumpectomy hematoma that could not be aspirated and persistent. POSTOPERATIVE DIAGNOSIS: Post-lumpectomy hematoma that could not be aspirated and persistent. PROCEDURE PERFORMED: Incision and drainage of left lumpectomy hematoma. ANESTHESIA: IV sedation, local 0.25% Marcaine. COMPLICATIONS: None. DRAINS: #15 Uriel drain. SURGEON: Ian Grubbs MD ESTIMATED BLOOD LOSS: 2 mL. PROCEDURE NOTE: With the patient under IV sedation, the IV antibiotic was administered. The left breast was prepped and draped in sterile fashion. The lower corner of the incision was opened about little under 2 cm. The subcutaneous tissue was dissected free and the hematoma was found. Pretty large sized cavity. Dark blood that was liquified was removed. There was also a thickened fibrin type blood product also evacuated. This was irrigated. The irrigation actually sucked out some more thicker stuff. Copious irrigation was performed. I decided to go ahead and place a drain. A #15 Uriel drain was brought through a small stab incision along the inframammary fold slightly lateral. The drain was brought up into the cavity. The drain was sutured with 2-0 silk suture at the site. The skin was then closed with 4-0 PDS in an interrupted subcuticular fashion, burying the knot. Steri-Strips applied. Dressing was placed over the breast and also around the drain. Op-Site was used. The patient tolerated the procedure well and was taken to recovery room. By: 1134 1148 Ian Grubbs MD /nt
[2020-06-21 09:02] LABS: HEMATOCRIT 46.9 % (37.0-47.0); HEMOGLOBIN 15.8 gm/dL (12.0-15.0)
[2020-06-21 10:35] VITALS: BP 138/81
[2020-06-21] MEDS ORDERED: HYDROCODON-ACE1 EAC7 PO (11:16)
[2020-06-21 12:13] VITALS: BP 138/81
== END 2020-06-21 12:50 | disposition home or self-care (01) ==
LOC: OR → TBA 08:19 → OR 08:24
PROVIDERS: ATTEND Surgery
DX: L76.82 Other postprocedural complications of skin and subcutaneous tissue (principal); I48.91 Unspecified atrial fibrillation; E78.5 Hyperlipidemia, unspecified; F32.9 Major depressive disorder, single episode, unspecified; F17.210 Nicotine dependence, cigarettes, uncomplicated; K21.9 Gastro-esophageal reflux disease without esophagitis; Z85.3 Personal history of malignant neoplasm of breast; Z98.890 Other specified postprocedural states; Z96.611 Presence of right artificial shoulder joint; Z79.899 Other long term (current) drug therapy; Z90.49 Acquired absence of other specified parts of digestive tract
CPT/HCPCS: 50010; 50101; 50386; 50403; 56526; 62110; 62850; 70005

== ENCOUNTER → 2020-08-28 | Outpatient (CLI) | payer OTHER | LOC: RAD 09:05 | PROVIDERS: ATTEND Physician Assistant | DX: Z12.31 Encounter for screening mammogram for malignant neoplasm of breast (principal); D05.12 Intraductal carcinoma in situ of left breast ==

== ENCOUNTER → 2020-12-31 | Outpatient (CLI) | payer OTHER | LOC: NUC 10:16 | PROVIDERS: ATTEND Physician Assistant | DX: D05.12 Intraductal carcinoma in situ of left breast (principal); Z78.0 Asymptomatic menopausal state ==

== ENCOUNTER → 2021-02-27 | Outpatient (CLI) | payer OTHER | LOC: RAD 10:53 | PROVIDERS: ATTEND Internal Medicine Hematology & Oncology | DX: D05.12 Intraductal carcinoma in situ of left breast (principal) ==